=== PATIENT | male | born 1980 | race African-American/Black ===

== ENCOUNTER 2018-11-26 22:27 | Emergency (ER) | payer OTHER ==
[~2018-11-26] VITALS: Ht 160 cm; Wt 81.6 kg
[2018-11-26] MEDS ORDERED: dilTIAZem 25 MG/5 ML VIAL IVP ONE (22:45)
--- NOTE | 2018-11-26 22:58 | EKG ---
[address] [address] Test Date: 2018-11-26 Test Time: 22:56:34 Pat Name: ETHAN WILLIAM Department: Room: Gender: M Cash Processing Specialist: : [id number] Requested By: DELORES LIND Order Number: [id number] Reading MD: Joaquín Lucio Measurements Intervals Cucumber Rate: 141 P: 49 PA: 122 QRS: 41 QRSD: 66 T: 81 QT: 274 QTc: 422 Interpretive Statements SINUS TACHYCARDIA T ABNORMALITY IN ANTEROLATERAL LEADS ABNORMAL ECG RI6.01 No previous ECG available for comparison Electronically Signed On 12-04-2018 10:52:11 PACKING CLERK by Joaquín Lucio
[2018-11-26 23:23] LABS: BASO # 0.1 x10^3/uL (0.0-0.2); BASO % 1 % (0-3); EOS % 0 % (0-3); HEMATOCRIT 43.9 % (39.0-53.0); LYMPH # 1.6 x10^3/uL (1.0-4.8); LYMPH % 17 % (24-48); MEAN CORPUSCULAR HEMOGLOBIN 29 pg (25-35); MEAN CORPUSCULAR HGB CONC 34 g/dL (31-37); MEAN CORPUSCULAR VOLUME 84 fL (79-100); MONO % 11 % (0-9); NEUT # 6.7 x10^3uL (1.8-7.7); NEUT % 71 % (31-73); PLATELET COUNT 138 x10^3/uL (140-400); RED BLOOD COUNT 5.22 x10^6/uL (4.30-5.70); RED CELL DISTRIBUTION WIDTH 13.3 % (11.5-14.5); WHITE BLOOD COUNT 9.4 x10^3/uL (4.0-11.0)
--- NOTE | 2018-11-26 23:30 | RAD ---
PROCEDURE: CHEST AP ONLY CLINICAL INDICATION: TACHYCARDIA
SMOKER COMPARISON: None FINDINGS: No pneumothorax identified. Cardiac and mediastinal contours unremarkable. No pulmonary consolidation or acute airspace disease. No acute osseous abnormalities identified. IMPRESSION: No pulmonary consolidation or acute airspace disease. Electronically signed by: Edilberto Randall DO (11/26/2018 11:27 PM) [facility]
--- NOTE | 2018-11-26 23:33 | RAD ---
Indication:PUNCHED WITH HIS RIGHT HAND, ABRASIONS AND SWELLING TECHNIQUE: 3 views of right hand COMPARISON: None FINDINGS/ impression: No acute fracture or dislocation. Electronically signed by: Edilberto Randall DO (11/26/2018 11:30 PM) [facility]
[2018-11-26 23:37] LABS: ALBUMIN 3.9 g/dL (3.4-5.0); ALBUMIN/GLOBULIN RATIO 0.8 (1.0-1.7); CALCIUM 9.3 mg/dL (8.5-10.1); CREATININE 1.2 mg/dL (0.7-1.3); GFR 68.1; POTASSIUM 3.6 mmol/L (3.5-5.1); TOTAL BILIRUBIN 0.7 mg/dL (0.2-1.0); TOTAL PROTEIN 8.5 g/dL (6.4-8.2)
[2018-11-27] MEDS ORDERED: METOPROLOL TARTRATE 5 MG/5 ML VIAL. IV ONE (00:15)
[2018-11-27] MEDS ORDERED: IV NORMAL SALINE 1,000ML 1,000 ML IV ONE (00:30)
[2018-11-27 01:21] LABS: AMPHETAMINE/METHAMPHETAMINE POS (NEG); BARBITURATES NEG (NEG); BENZODIAZEPINES NEG (NEG); CANNABINOIDS NEG (NEG); COCAINE NEG (NEG); METHADONE NEG (NEG); OPIATES NEG (NEG); PHENCYCLIDINE NEG (NEG)
[2018-11-27 01:27] LABS: BILIRUBIN,URINE NEG (NEG); CLARITY,URINE CLEAR; COLOR,URINE YELLOW; GLUCOSE,URINE 100 mg/dL (NEG); NITRITE,URINE NEG (NEG); UROBILINOGEN,URINE 0.2 mg/dL (0.2 mg/dL)
[2018-11-27 01:28] LABS: BACTERIA,URINE 0 /HPF (0-FEW); HYALINE CASTS, URINE FEW /HPF; SQUAMOUS EPITHELIAL CELL,UR FEW /LPF
--- NOTE | 2018-11-27 01:35 | PHYS DOC ---
Past History Past Medical History: Anemia, Diabetes, Hypertension, Hepatitis, Other Past Surgical History: No Surgical History Alcohol Use: None Drug Use: None Adult General Chief Complaint Chief Complaint: HAND PROBLEM HPI HPI Patient is a 38-year-old male who presents with complaint of injury to his right hand. Patient had gotten angry earlier this evening and had punched a locker causing injury to his hand. Patient states that the pain in his hand is moderate. He wanted to get it checked out to make sure it is not broken. He denies any chest pain or shortness of breath. He also denies any cough. He rates pain in his hand as being moderate and states that pain is worsened with flexion and extension of his fingers. Review of Systems Review of Systems Constitutional: Denies fever or chills [] Respiratory: Denies cough or shortness of breath [] Cardiovascular: No additional information not addressed in HPI [] Musculoskeletal: Complains of right hand pain [] Integument: Denies rash or skin lesions [] Neurologic: Denies headache, focal weakness or sensory changes [] All other systems were reviewed and found to be within normal limits, except as documented in this note. Current Medications Current Medications Current Medications Medications (Trade) Dose Ordered Sig/Paulino Start Time Stop Time Status Last Admin Dose Admin Diltiazem HCl (Cardizem Iv Push) 20 mg 1X ONCE 11/26/18 22:45 11/26/18 22:48 DC 11/26/18 23:07 20 MG Metoprolol Tartrate (Lopressor Vial) 5 mg 1X ONCE 11/27/18 00:15 11/27/18 00:16 DC 11/27/18 00:18 5 MG Sodium Chloride 1,000 ml @ 1,000 mls/hr 1X ONCE 11/27/18 00:30 11/27/18 01:29 DC 11/27/18 00:34 1,000 MLS/HR Allergies Allergies Allergies Coded Allergies Type Severity Reaction Last Updated Verified No Known Drug Allergies 11/27/18 No Physical Exam Physical Exam Constitutional: Well developed, well nourished, no acute distress, non-toxic appearance. [] HENT: Normocephalic, atraumatic, bilateral external ears normal, oropharynx moist, no oral exudates, nose normal. [] Eyes: PERRLA, EOMI, conjunctiva normal, no discharge. [] Neck: Normal range of motion, no tenderness, supple, no stridor. [] Cardiovascular: Markedly tachycardic rate with regular rhythm[] Lungs & Thorax: Bilateral breath sounds clear to auscultation [] Abdomen: Bowel sounds normal, soft, no tenderness. [] Skin: Warm, dry, no erythema, no rash. [] Extremities: Right hand demonstrates some soft tissue swelling overlying primarily the second and third MCP joints. There are are a few abrasions and one small skin tear noted to the dorsal aspect of the hand. Patient has full range of motion of all fingers. [] Neurologic: Alert and oriented X 3, no focal deficits noted. [] Current Patient Data Vital Signs Vital Signs Date Time Temp Pulse Resp B/P (MAP) Pulse Ox O2 Delivery O2 Flow Rate FiO2 11/27/18 00:18 132 141/70 11/26/18 23:13 21 91 Room Air 11/26/18 22:27 99.2 Lab Results Laboratory Tests Test 11/26/18 23:00 11/27/18 00:30 White Blood Count 9.4 x10^3/uL (4.0-11.0) Red Blood Count 5.22 x10^6/uL (4.30-5.70) Hemoglobin 15.0 g/dL (13.0-17.5) Hematocrit 43.9 % (39.0-53.0) Mean Corpuscular Volume 84 fL (79-100) Mean Corpuscular Hemoglobin 29 pg (25-35) Mean Corpuscular Hemoglobin Concent 34 g/dL (31-37) Red Cell Distribution Width 13.3 % (11.5-14.5) Platelet Count 138 x10^3/uL (140-400) L Neutrophils (%) (Auto) 71 % (31-73) Lymphocytes (%) (Auto) 17 % (24-48) L Monocytes (%) (Auto) 11 % (0-9) H Eosinophils (%) (Auto) 0 % (0-3) Basophils (%) (Auto) 1 % (0-3) Neutrophils # (Auto) 6.7 x10^3uL (1.8-7.7) Lymphocytes # (Auto) 1.6 x10^3/uL (1.0-4.8) Monocytes # (Auto) 1.0 x10^3/uL (0.0-1.1) Eosinophils # (Auto) 0.0 x10^3/uL (0.0-0.7) Basophils # (Auto) 0.1 x10^3/uL (0.0-0.2) Sodium Level 138 mmol/L (136-145) Potassium Level 3.6 mmol/L (3.5-5.1) Chloride Level 100 mmol/L (98-107) Carbon Dioxide Level 23 mmol/L (21-32) Anion Gap 15 (6-14) H Blood Urea Nitrogen 23 mg/dL (8-26) Creatinine 1.2 mg/dL (0.7-1.3) Estimated GFR (Cockcroft-Gault) 68.1 BUN/Creatinine Ratio 19 (6-20) Glucose Level 241 mg/dL (70-99) H Calcium Level 9.3 mg/dL (8.5-10.1) Total Bilirubin 0.7 mg/dL (0.2-1.0) Aspartate Amino Transferase (AST) 75 U/L (15-37) H Alanine Aminotransferase (ALT) 225 U/L (16-63) H Alkaline Phosphatase 65 U/L (46-116) Troponin I Quantitative < 0.017 ng/mL (0-0.055) YI-Wqq-C-Type Natriuretic Peptide 207 pg/mL (0-124) H Total Protein 8.5 g/dL (6.4-8.2) H Albumin 3.9 g/dL (3.4-5.0) Albumin/Globulin Ratio 0.8 (1.0-1.7) L Urine Collection Type Unknown Urine Color Yellow Urine Clarity Clear Urine pH 6.0 Urine Specific [place] >=1.030 Urine Protein >100 mg/dl (NEG-TRACE) Urine Glucose (UA) 100 mg/dL (NEG) Urine Ketones (Stick) 15 mg/dL (NEG) Urine Blood Small (NEG) Urine Nitrite Neg (NEG) Urine Bilirubin Neg (NEG) Urine Urobilinogen Dipstick 0.2 mg/dL (0.2 mg/dL) Urine Leukocyte Esterase Neg (NEG) Urine RBC 1-2 /HPF (0-2) Urine WBC 1-4 /HPF (0-4) Urine Squamous Epithelial Cells Few /LPF Urine Bacteria 0 /HPF (0-FEW) Urine Hyaline Casts Few /HPF Urine Mucus Mod /LPF Urine Opiates Screen Neg (NEG) Urine Methadone Screen Neg (NEG) Urine Barbiturates Neg (NEG) Urine Phencyclidine Screen Neg (NEG) Urine Amphetamine/Methamphetamine Pos (NEG) Urine Benzodiazepines Screen Neg (NEG) Urine Cocaine Screen Neg (NEG) Urine Cannabinoids Screen Neg (NEG) Urine Ethyl Alcohol Neg (NEG) EKG EKG EKG demonstrates sinus tachycardia with rate of 144.[] Radiology/Procedures Radiology/Procedures [] Impressions: Chest x-ray demonstrates no acute process. X-ray of the right hand demonstrates no acute bony abnormalities. Course & Med Decision Making Course & Med Decision Making Pertinent Labs and Imaging studies reviewed. (See chart for details) [] Dragon Disclaimer Dragon Disclaimer This electronic medical record was generated, in whole or in part, using a voice recognition dictation system. Departure Departure: Impression: Primary Impression: Tachycardia Additional Impressions: Dehydration Hand contusion Methamphetamine abuse Disposition: HOME, SELF-CARE Condition: STABLE Referrals: PCP,NO (PCP) Patient Instructions: Dehydration, Adult, Hand Contusion, Nonspecific Tachycardia Problem Qualifiers Additional Impressions: Hand contusion Encounter type: initial encounter Laterality: right Qualified Codes: S60.221A - Contusion of right hand, initial encounter DELORES LIND Jr. DO Nov 27, 2018 01:35
[2018-11-27 02:00] VITALS: BP 130/77
== END 2018-11-27 02:08 | disposition home or self-care (01) ==
LOC: ER 22:27
DX: S61.411A Laceration without foreign body of right hand, initial encounter (principal); S60.221A Contusion of right hand, initial encounter; E86.0 Dehydration; R00.0 Tachycardia, unspecified; F15.10 Other stimulant abuse, uncomplicated; E11.9 Type 2 diabetes mellitus without complications; I10 Essential (primary) hypertension; Z86.2 Personal history of diseases of the blood and blood-forming organs and certain disorders involving the immune mechanism; W22.8XXA Striking against or struck by other objects, initial encounter; Y93.89 Activity, other specified; Y92.89 Other specified places as the place of occurrence of the external cause; Y99.8 Other external cause status
CPT/HCPCS: 36415; 71045; 73130; 80053; 80307; 81001; 83880; 84484; 85025; 93005; 96361; 96374; 96375; 99284; J3490; J7030